=== PATIENT | male | born 1980 | race Caucasian/White ===

== ENCOUNTER 2017-01-08 18:07 | Emergency (ER) | payer OTHER ==
[~2017-01-08] VITALS: Wt 71.6 kg
[~2017-01-08 18:07] MED LIST: ACET1TAB40 PO; HYDR-3498 PO; IBUP-1542 PO
[2017-01-08] MEDS ORDERED: traMADol 50 MG TAB PO ONE (19:00)
[2017-01-08] MEDS ORDERED: NAPR-260 PO (19:12)
[2017-01-08] MEDS ORDERED: TRAM50TA2 PO (19:12)
[2017-01-08] MEDS ORDERED: CYCL-319 PO (19:13)
--- NOTE | 2017-01-08 19:18 | ERD ---
ER Documentation Chief Complaint Date/Time DATE: 01/08/17 TIME: 19:16 Chief Complaint right shoulder pain from lifting yesterday. no deformity noted. HPI This is a 36-year-old male who presents to the emergency department today complaining of right shoulder pain after lifting a heavy object yesterday. 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 Denies a previous history of trauma. CT to Tylenol for pain. Denies any fevers or chills. ROS All systems reviewed and are negative except as per history of present illness. Medications Home Meds Active Scripts Cyclobenzaprine Hcl* (Cyclobenzaprine Hcl*) 10 Mg Tablet, 10 MG PO QHS, #7 TAB Prov:MELISA CHEEMA PA-C 01/08/17 Naproxen* (Naprosyn*) 500 Mg Tablet, 500 MG PO BID Y for PAIN AND/OR INFLAMMATION, #30 TAB Prov:MELISA CHEEMA PA-C 01/08/17 Tramadol HCl (Tramadol HCl) 50 Mg Tablet, 50 MG PO Q4 Y for PAIN, #20 TAB Prov:MELISA CHEEMAC 01/08/17 Acetaminophen with Codeine (Acetaminophen-Cod #3 Tablet) 1 Each Tablet, 1 TAB PO Q6H Y for PAIN, #10 TAB Prov:YOUNG KRISHNAMURTHY MD 11/07/16 Ibuprofen* (Ibuprofen*) 600 Mg Tablet, 600 MG PO Q6 for 7 Days, TAB Prov:SUSANA RENEE 10/06/15 Hydrocodone Bit-Acetaminophen* ([place]*) 5-325 Mg Tab, 1 TAB PO Q6 Y for PAIN, # 20 TAB Prov:SUSANA RENEE 10/06/15 Allergies Allergies: Coded Allergies: No Known Allergy (Unverified , 01/08/17) PMhx/Soc Medical and Surgical Hx: pt denies Medical Hx, pt denies Surgical Hx History of Surgery: Yes (RT ANKLE SX) Anesthesia Reaction: No Hx Neurological Disorder: No Hx Respiratory Disorders: No Hx Cardiac Disorders: No Hx Psychiatric Problems: No Hx Miscellaneous Medical Probl: No Hx Alcohol Use: Yes (occassional) Hx Substance Use: No Hx Tobacco Use: No Smoking Status: Never smoker Physical Exam Vitals Vital Signs Date Time Temp Pulse Resp B/P Pulse Ox O2 Delivery O2 Flow Rate FiO2 2/12/17 18:12 98.3 71 20 116/73 98 Physical Exam Const: No acute distress Head: Atraumatic Eyes: Normal Conjunctiva ENT: Normal External Ears, Nose and Mouth. Neck: Full range of motion..~ No meningismus. Right-sided trapezius tenderness with palpation. Resp: Clear to auscultation bilaterally Cardio: Regular rate and rhythm, no murmurs Abd: Soft, non tender, non distended. Normal bowel sounds Skin: No petechiae or rashes MSK: Shoulder with full active range of motion with pain and radiation of flexion. No obvious deformity. No effusion. No ecchymosis. Pulses 2+. Distal neurovascularly intact Neur: Awake and alert Psych: Normal Mood and Affect Results 24 hrs Current Medications Medications (Trade) Dose Ordered Sig/Mercedez Route PRN Reason Start Time Stop Time Status Last Admin Dose Admin Tramadol HCl (Ultram) 50 mg ONCE ONCE PO 01/08/17 19:00 01/08/17 19:01 DC 01/08/17 19:03 Procedures/MDM This is a very old male with S emergency department today complaining of right shoulder pain after lifting something heavy yesterday. Patient has no obvious deformity does have full active range of motion. Patient was complaining of pain in his trapezius muscle and then on the underside of his shoulder joint. I felt the patient requires a x-ray at this time. No suspicion for acute fracture or dislocation. Patient is afebrile and otherwise well-appearing. There is no erythema or warmth and low suspicion for septic joint or gout. Patient was given tramadol here in the emergency department. He'll be given a prescription for tramadol for home as well as Naprosyn and a short course of Flexeril. Patient's symptoms at this time is consistent with muscle strain and muscle spasm. At this time the patient is stable for discharge and outpatient management. Patient should follow up with their PCP in the next 1-2 days. They may return to the emergency department sooner for any persistent or worsening of symptoms. Patient understood and agreed with the plan. Departure Diagnosis: Primary Impression: Shoulder injury Encounter type: initial encounter Laterality: right Qualified Code: S49.91XA - Shoulder injury, right, initial encounter Condition: Fair Patient Instructions: Shoulder Problems [facility] Usted se guerrero hecho un examen mdico de control que le indica que no est en anita condicin que requiera tratamiento urgente en el Departamento de Emergencia. Un estudio ms profundo y el tratamiento de ramos condicin pueden esperar sin ningn riesgo hasta que usted sea atendida/o en el consultorio de ramos mdico o anita cl mony. Es responsabilidad suya arreglar anita ya para el seguimiento del steven. MANEJO DE CONDICIONES NO URGENTES EN EL FUTURO 1) Si usted tiene un mdico de atencin primaria: Usted debera llamar a ramos mdico de atencin primaria antes de venir al departamento de emergencia. Despus de las horas de consultorio, ramos doctor o ramos asociado/a est disponible por telfono. El mdico o enfermero de robert en el servicio telefnico puede asesorarle por ligia medio para atender el problema, o steven contrario se puede programar anita ya. 2) Si usted no tiene un mdico de atencin primaria: Llame al mdico o clnica de referencia que aparece abajo korin las horas de consultorio para hacer anita ya para que le vean. CLINICAS: [facility] [phone] [facility] [phone] [facility] [phone] [address] [facility]. [facility] [phone] [address] [facility] [place] [id number] [phone] [facility]. [phone] [address] Additional Instructions: Llame al doctor MAANA y emily anita YA PARA DENTRO DE 1-2 SARGENT.Dgale a la secretaria que nosotros le instruimos hacer esta ya.Avise o llame si ramos condicin se empeora antes de la ya. Regresa aqui si peor o no mejor. tramadol for severe pain otherwise take Naprosyn or Tylenol or Motrin Apply ice to painful area Use Flexeril for muscle spasms. Only take at night and do not travel taking this medication. MELISA CHEEMA PA-C Jan 08, 2017 19:18
[2017-01-08 19:22] VITALS: PULSE 78; RESP 16
== END 2017-01-08 19:23 | disposition home or self-care (01) ==
LOC: FTE 18:07
DX: S49.91XA Unspecified injury of right shoulder and upper arm, initial encounter (principal); X50.0XXA Overexertion from strenuous movement or load, initial encounter; Y92.89 Other specified places as the place of occurrence of the external cause
CPT/HCPCS: Z7502; Z7610; 99284

== ENCOUNTER 2017-05-12 13:08 | Emergency (ER) | payer OTHER ==
[~2017-05-12] VITALS: Ht 165.1 cm; Wt 71.0 kg
[~2017-05-12 13:08] MED LIST changes: +CYCL-319 PO; +NAPR-260 PO; +TRAM50TA2 PO
[2017-05-12 13:14] VITALS: Ht 165.1 cm; Wt 71.0 kg
[2017-05-12] MEDS ORDERED: FLUORESCEIN STRIP BOTH EYES ONE (14:30)
[2017-05-12] MEDS ORDERED: TETRACAINE 0.5% 4 ML OPH BOTH EYES ONE ×2 (14:30)
[2017-05-12] MEDS ORDERED: OFLO5DRO46 BOTH EYES (15:47)
--- NOTE | 2017-05-12 15:56 | ERD ---
ER Documentation Chief Complaint Date/Time DATE: 05/12/17 TIME: 15:50 Chief Complaint Pt with R eye redness X 2 days, clear discharge. No fever. HPI 36-year-old male patient with a past medical history of right eye blindness presents to the ED complaining of bilateral eye irritation that started yesterday while walking on the streets. Reports that he felt like foreign bodies got into his eye as he was walking on the street and it was windy. Denies any bilateral eye pain, left eye blurred vision or vision loss, headache , nausea, vomiting, headache, weakness, numbness or tingling, seizures. Denies any photophobia. ROS All systems reviewed and are negative except as per history of present illness. Medications Home Meds Active Scripts Ofloxacin* (Ocuflox*) 0.3%-5 Ml Ophth Drops, 1 DROP BOTH EYES QID for 7 Days, # 1 BOTTLE Prov:MAXIMO DELGADO PA-C 05/12/17 Cyclobenzaprine Hcl* (Cyclobenzaprine Hcl*) 10 Mg Tablet, 10 MG PO QHS, #7 TAB Prov:MELISA CHEEMA PA-C 01/08/17 Naproxen* (Naprosyn*) 500 Mg Tablet, 500 MG PO BID Y for PAIN AND/OR INFLAMMATION, #30 TAB Prov:MELISA CHEEMA PA-C 01/08/17 Tramadol HCl (Tramadol HCl) 50 Mg Tablet, 50 MG PO Q4 Y for PAIN, #20 TAB Prov:MELISA CHEEMA PA-C 01/08/17 Acetaminophen with Codeine (Acetaminophen-Cod #3 Tablet) 1 Each Tablet, 1 TAB PO Q6H Y for PAIN, #10 TAB Prov:YOUNG KRISHNAMURTHY MD 11/07/16 Ibuprofen* (Ibuprofen*) 600 Mg Tablet, 600 MG PO Q6 for 7 Days, TAB Prov:SUSANA RENEE 10/06/15 Hydrocodone Bit-Acetaminophen* ([place]*) 5-325 Mg Tab, 1 TAB PO Q6 Y for PAIN, # 20 TAB Prov:SUSANA RENEE 10/06/15 Allergies Allergies: Coded Allergies: No Known Allergy (Unverified , 01/08/17) PMhx/Soc History of Surgery: No Anesthesia Reaction: No Hx Neurological Disorder: No Hx Respiratory Disorders: No Hx Cardiac Disorders: No Hx Psychiatric Problems: No Hx Miscellaneous Medical Probl: No Hx Alcohol Use: No Hx Substance Use: No Hx Tobacco Use: No Smoking Status: Never smoker Physical Exam Vitals Vital Signs Date Time Temp Pulse Resp B/P Pulse Ox O2 Delivery O2 Flow Rate FiO2 05/12/17 13:14 98.3 69 16 118/76 97 Physical Exam Const: Ltj-edg-moeexsexr, well-nourished. In no acute distress. Head: Atraumatic, normocephalic Eyes: Normal Conjunctiva without injection. No purulent discharge. PERRLA. EOMI ENT: Normal external ear. Ear canal without erythema. Tympanic membrane pearly cuevas without effusion or bulging. Nasal canal clear with normal turbinates. Moist oropharynx without tonsillar exudates. Non-erythematous pharynx. Uvula midline. No drooling. No trismus. Neck: No cervical midline tenderness. Full range of motion. No meningismus. No cervical lymphadenopathy. No JVD. Resp: Clear to auscultation bilaterally. No wheezing, rhonchi, rales, or crackles. No accessory muscle use. No retractions. Cardio: Regular rate and rhythm. No murmurs, rubs or gallops. Abd: Soft, non tender, non distended. Normal bowel sounds. No palpable masses. No rebound tenderness. No guarding. Negative McBurney's Point. Negative Edwards's Sign. Skin: Normal skin turgor. No petechiae or rashes Back: No midline tenderness. No CVA tenderness. Ext: No cyanosis, or edema. Distal pulses intact bilaterally. Neur: Awake and alert. Normal gait. Normal coordination. Cranial Nerves II- VII intact. Normal finger to nose. Muscle strength 5/5. Sensation intact. Psych: Normal Mood and Affect Results 24 hrs Current Medications Medications (Trade) Dose Ordered Sig/Mercedez Route PRN Reason Start Time Stop Time Status Last Admin Dose Admin Tetracaine HCl (Tetracaine 0.5% Steri-Unit Malaika) 1 drop ONCE ONCE BOTH EYES 05/12/17 14:30 05/12/17 16:06 DC Tetracaine HCl (Tetracaine 0.5% Steri-Unit Malaika) 1 drop ONCE ONCE BOTH EYES 05/12/17 14:30 05/12/17 16:06 DC Fluorescein Sodium (Lbolg-M-Bsfgz) 1 strip ONCE ONCE BOTH EYES 05/12/17 14:30 05/12/17 16:06 DC Procedures/MDM 36-year-old male with a past medical history of right eye blindness presents the ED complaining of bilateral eye irritation after walking through wind. Patient is afebrile nontoxic appearing. Patient is normal vital signs. Eye Exam w/ Wood's lamp: Visual Acuity: R eye blindness, L 20/40 Visual Garrison: Intact in all four quadrants bilaterally Lac ducts/glands: No swelling Lids w/ evertion: Normal, no foreign body An attempt to irrigate both eyes was performed by nursing staff with improvement of his symptoms. Patient no longer feels foreign body sensation. At this time [place] lamp is not available for use as it is in Biomed being fixed. In case, corneal abrasion/ulcer instructions have been given to patient in case there are any corneal abrasions. Low suspicion for ruptured globe, retinal detachment, periorbital cellulitis, acute angle closure glaucoma, deep space infection, iritis, traumatic hyphema, conjunctivitis, subconjunctival hemorrhage , pterygium, hypopyon, blepharitis, hordeolum, chalazion, or other emergent conditions. Discharge medications: Ocuflox Strictly instructed patient to follow up with an avionics systems integration specialist within 24 hours. Instructed patient to return to the ED for any worsening symptoms. Patient is hemodynamically stable. Patient's questions were answered. Patient understood and agreed with discharge plan. Departure Diagnosis: Primary Impression: Burning sensation in eye Condition: Stable Patient Instructions: Corneal Abrasion, Ofloxacin Eye drops, solution Referrals: [facility] YOU HAVE RECEIVED A MEDICAL SCREENING EXAM AND THE RESULTS INDICATE THAT YOU DO NOT HAVE A CONDITION THAT REQUIRES URGENT TREATMENT IN THE EMERGENCY DEPARTMENT. FURTHER EVALUATION AND TREATMENT OF YOUR CONDITION CAN WAIT UNTIL YOU ARE SEEN IN YOUR DOCTORS OFFICE WITHIN THE NEXT 1-2 DAYS. IT IS YOUR RESPONSIBILITY TO MAKE AN APPOINTMENT FOR FOLOW-UP CARE. IF YOU HAVE A PRIMARY DOCTOR --you should call your primary doctor and schedule an appointment IF YOU DO NOT HAVE A PRIMARY DOCTOR YOU CAN CALL OUR PHYSICIAN REFERRAL HOTLINE AT IF YOU CAN NOT AFFORD TO SEE A PHYSICIAN YOU CAN CHOSE FROM THE FOLLOWING [facility] [address] [facility]. [facility] [address] [facility] [facility] [address] [facility] [address] [facility] [address] [facility]. [facility] [address] [facility]. [facility] YOU HAVE RECEIVED A MEDICAL SCREENING EXAM AND THE RESULTS INDICATE THAT YOU DO NOT HAVE A CONDITION THAT REQUIRES URGENT TREATMENT IN THE EMERGENCY DEPARTMENT. FURTHER EVALUATION AND TREATMENT OF YOUR CONDITION CAN WAIT UNTIL YOU ARE SEEN IN YOUR DOCTORS OFFICE WITHIN THE NEXT 1-2 DAYS. IT IS YOUR RESPONSIBILITY TO MAKE AN APPOINTMENT FOR FOLOW-UP CARE. IF YOU HAVE A PRIMARY DOCTOR --you should call your primary doctor and schedule and appointment IF YOU DO NOT HAVE A PRIMARY DOCTOR YOU CAN CALL OUR PHYSICIAN REFERRAL HOTLINE AT . IF YOU CAN NOT AFFORD TO SEE A PHYSICIAN YOU CAN CHOSE FROM THE FOLLOWING [facility] INSTITUTIONS: [facility] [address] [place] [address] [facility] [address] [place] [address] [facility] [address] [place] [address] [facility] Hours: Mon - Fri 9:00 AM - 5:00 PM Additional Instructions: Seguimiento con un oftalmlogo dentro de las 24 horas para evaluacin adicional y tratamiento Regrese a estas instalaciones si no se mejora sebastian esperbamos o sebastian le dijimos. MAXIMO DELGADO PA-C May 12, 2017 15:56
== END 2017-05-12 15:58 | disposition home or self-care (01) ==
LOC: FTE 13:08
DX: H57.8 Other specified disorders of eye and adnexa (principal)
CPT/HCPCS: 99283

== ENCOUNTER 2017-06-22 22:15 | Emergency (ER) | END 2017-06-23 02:14 | disposition home or self-care (01) | DX: H43.392 Other vitreous opacities, left eye (principal) | CPT/HCPCS: 76536; Z7502; Z7610 ==

== ENCOUNTER 2018-01-21 19:50 | Emergency (ER) | END 2018-01-21 21:43 | disposition home or self-care (01) ==

== ENCOUNTER 2018-04-21 12:36 | Emergency (ER) | END 2018-04-21 14:26 | disposition home or self-care (01) ==

== ENCOUNTER 2018-07-23 11:37 | Emergency (ER) | END 2018-07-23 15:05 | disposition home or self-care (01) ==

== ENCOUNTER 2018-10-27 20:43 | Emergency (ER) | END 2018-10-27 21:45 | disposition home or self-care (01) ==

== ENCOUNTER 2019-06-03 14:55 | Emergency (ER) | payer OTHER ==
[~2019-06-03] VITALS: Ht 157.5 cm; Wt 73.8 kg
[~2019-06-03 14:55] MED LIST changes: +ACET500C5 PO; +AZIT250T PO; +CETI10CA PO; -CYCL-319 PO; +CYCL10TA7 PO; +GUAI120S25 PO; -NAPR-260 PO; +NAPR-985 PO; +OFLO5DRO46 BOTH EYES
[2019-06-03 15:09] VITALS: BP 135/78; PULSE 64; RESP 18; Ht 157.5 cm; Wt 73.8 kg
[2019-06-03] MEDS ORDERED: IBUPROFEN 600 MG TAB PO ONE (17:00)
[2019-06-03] MEDS ORDERED: IBUP-1561 PO (18:14)
--- NOTE | 2019-06-03 18:17 | ERD ---
ER Documentation Chief Complaint Chief Complaint right shoulder pain x2wks HPI This is a 38-year-old male who presents for evaluation of right shoulder pain for the last 2 weeks intermittently. he describes symptoms as intermittent. 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 ROS All systems reviewed and are negative except as per history of present illness. Medications Home Meds Active Scripts Ibuprofen* (Motrin*) 600 Mg Tab, 600 MG PO Q6, #20 TAB Prov:YOUNG KRISHNAMURTHY MD 10/27/18 Cyclobenzaprine Hcl* (Cyclobenzaprine Hcl*) 10 Mg Tablet, 10 MG PO TID, #15 TAB Prov:YOUNG KRISHNAMURTHY MD 10/27/18 Tramadol HCl (Tramadol HCl) 50 Mg Tablet, 50 MG PO Q4 PRN for PAIN, #15 TAB Prov:YOUNG KRISHNAMURTHY MD 10/27/18 Acetaminophen* (Tylophen*) 500 Mg Capsule, 1 CAP PO Q6H PRN for PAIN AND OR ELEVATED TEMP, #30 CAP Prov:MELISA CHEEMAC 07/23/18 Naproxen* (Naprosyn*) 500 Mg Tablet, 500 MG PO BID PRN for PAIN AND/OR INFLAMMATION, #30 TAB Prov:MELISA CHEEMAC 07/23/18 Cetirizine Hcl* (Zyrtec*) 10 Mg Capsule, 10 MG PO DAILY, #10 TAB.CHEW Prov:SRAAH VELAZCO-C 04/21/18 Ibuprofen* (Motrin*) 600 Mg Tab, 600 MG PO Q6, #30 TAB Prov:SARAH VELAZCOC 04/21/18 Acetaminophen* (Tylophen*) 500 Mg Capsule, 1 CAP PO Q6H PRN for PAIN AND OR ELEVATED TEMP, #20 CAP Prov:CORTEZ DAVIS NP 01/21/18 Ibuprofen* (Motrin*) 600 Mg Tab, 600 MG PO Q6H PRN for PAIN AND OR ELEVATED TEM P, #30 TAB Prov:CORTEZ DAVIS NP 01/21/18 Cetirizine Hcl* (Zyrtec*) 10 Mg Capsule, 10 MG PO DAILY, #30 TAB.CHEW Prov:CORTEZ DAVIS FILM REPLACEMENT ORDERER 01/21/18 Yeveufckavp-A-Okxmmusadj Hb* (Guaifenesin* DM Syrup) 120 Ml Syrup, 10 ML PO Q4H PRN for COUGH, #120 ML Prov:CORTEZ DAVIS FILM REPLACEMENT ORDERER 01/21/18 Azithromycin* (Zithromax*) 250 Mg Tablet, 250 MG PO .CHECO DIRECTED, #6 TAB TAKE 500 MG (2 TABS) THE FIRST DAY THEN 250 MG (1 TAB) DAYS 2-5 Prov:CORTEZ DAVIS FILM REPLACEMENT ORDERER 01/21/18 Ofloxacin* (Ocuflox*) 0.3%-5 Ml Ophth Drops, 1 DROP BOTH EYES QID for 7 Days, #1 BOTTLE Prov:MAXIMO DELGADOC 05/12/17 Cyclobenzaprine Hcl* (Cyclobenzaprine Hcl*) 10 Mg Tablet, 10 MG PO QHS, #7 TAB Prov:MELISA CHEEMAC 01/08/17 Naproxen* (Naprosyn*) 500 Mg Tablet, 500 MG PO BID PRN for PAIN AND/OR INFLAMMATION, #30 TAB Prov:MELISA CHEEMAC 01/08/17 Tramadol HCl (Tramadol HCl) 50 Mg Tablet, 50 MG PO Q4 PRN for PAIN, #20 TAB Prov:MELISA CHEEMAC 01/08/17 Acetaminophen with Codeine (Acetaminophen-Cod #3 Tablet) 1 Each Tablet, 1 TAB PO Q6H PRN for PAIN, #10 TAB Prov:YOUNG KRISHNAMURTHY MD 11/07/16 Ibuprofen* (Ibuprofen*) 600 Mg Tablet, 600 MG PO Q6 for 7 Days, TAB Prov:SUSANA RENEE 10/06/15 Hydrocodone Bit-Acetaminophen* ([place]*) 5-325 Mg Tab, 1 TAB PO Q6 PRN for PAIN, #20 TAB Prov:SUSAAN RENEE 10/06/15 Allergies Allergies: Coded Allergies: No Known Allergy (Unverified , 01/08/17) PMhx/Soc Medical and Surgical Hx: pt denies Medical Hx, pt denies Surgical Hx History of Surgery: Yes (RT FOOT) Anesthesia Reaction: No Hx Neurological Disorder: No Hx Respiratory Disorders: No Hx Cardiac Disorders: No Hx Psychiatric Problems: No Hx Miscellaneous Medical Probl: No Hx Alcohol Use: No Hx Substance Use: No Hx Tobacco Use: No Smoking Status: Never smoker Physical Exam Vitals Vital Signs Date Temp Pulse Resp B/P (MAP) Pulse Ox O2 O2 Flow FiO2 Time Delivery Rate 06/03/19 98.2 64 18 135/78 98 15:09 (97) Physical Exam Const: Well-developed well-nourished Head: Atraumatic Eyes: Normal conjunctiva ENT: Normal external ears, nose and mouth. Neck: Resp: Normal respiratory effort Cardio: Abd: Skin: Back: Ext: Right shoulder: Full range of the shoulder is intact, there is no deformity noted, there is no axillary numbness, sensation is intact light touch distally, skin is intact with no abrasions or lacerations, radial pulses 2+ distally. Compartments are soft and easily compressible Neur: Awake and alert Psych: Normal mood and affect Results 24 hrs Current Medications Medications Dose Sig/Mercedez Start Time Status Last (Trade) Ordered Route PRN Stop Time Admin Dose Reason Admin Ibuprofen 600 mg ONCE ONCE 06/03/19 DC 06/03/19 (Motrin) PO 17:00 06/03/19 16:58 17:01 Procedures/MDM 38-year-old male presents for evaluation of shoulder pain. X-ray shows no evidence of acute injury, patient has no history of trauma, and no signs or symptoms of infection, no neurovascular deficit. Suspect most likely related to overuse injury, recommended supportive care at discharge patient was in no distress. Departure Diagnosis: Primary Impression: Shoulder pain Chronicity: unspecified Laterality: unspecified laterality Qualified Codes: M25.519 - Pain in unspecified shoulder Condition: CANELO Baker MD Jun 03, 2019 18:17
== END 2019-06-03 18:27 | disposition home or self-care (01) ==
LOC: FTE 14:55
DX: M25.511 Pain in right shoulder (principal)
CPT/HCPCS: 71045; 73030; Z7502; Z7610

== ENCOUNTER 2019-09-30 15:41 | Emergency (ER) | payer OTHER ==
[~2019-09-30] VITALS: Ht 165.1 cm; Wt 73.7 kg
[~2019-09-30 15:41] MED LIST changes: +ACET-141 PO; +IBUP-1561 PO
[2019-09-30 15:56] VITALS: BP 115/56; PULSE 84; RESP 16; Ht 165.1 cm; Wt 73.7 kg
== END 2019-09-30 17:35 | disposition home or self-care (01) ==
LOC: E/R 15:41
DX: S69.91XA Unspecified injury of right wrist, hand and finger(s), initial encounter (principal); X58.XXXA Exposure to other specified factors, initial encounter; Y92.9 Unspecified place or not applicable
CPT/HCPCS: 73130; Z7502